=== PATIENT | female | born 1985 | race Caucasian/White ===

== ENCOUNTER 2021-03-08 17:19 | Emergency (ER) | payer BC, SELFPAY ==
[2021-03-08 17:39] VITALS: BP 114/73; PULSE 72; RESP 18; TEMP 36.9; O2SAT 100
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
[2021-03-08] MEDS: HYDROcodone 5/Acetaminophen 325 TAB PO (18:23)
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
[2021-03-08] MEDS: Cyclobenzaprine 10 MG TAB PO (21:55)
[2021-03-08] MEDS: Ondansetron O.D.T. 4 MG TABEF PO (22:08)
== END 2021-03-08 22:00 | disposition home or self-care (01) ==
PROVIDERS: Emergency Provider Physician Assistant
DX: S42.022A Displaced fracture of shaft of left clavicle, initial encounter for closed fracture (principal); S20.229A Contusion of unspecified back wall of thorax, initial encounter; V18.0XXA Pedal cycle driver injured in noncollision transport accident in nontraffic accident, initial encounter; Y93.55 Activity, bike riding
CPT/HCPCS: 23500; 99282; 70450; 71046; 72125; 73000; 73030